=== PATIENT | female | born 1985 | race Caucasian/White ===

== ENCOUNTER 2018-06-13 17:47 | Emergency (ER) | payer SELFPAY ==
[~2018-06-13] VITALS: Ht 157.5 cm; Wt 55.3 kg
[2018-06-13 18:21] VITALS: Ht 157.5 cm; Wt 55.3 kg
[2018-06-13 19:53] VITALS: BP 137/79
== END 2018-06-13 19:53 | disposition home or self-care (01) ==
LOC: ED 17:47
DX: S46.912A Strain of unspecified muscle, fascia and tendon at shoulder and upper arm level, left arm, initial encounter (principal); S39.012A Strain of muscle, fascia and tendon of lower back, initial encounter; Z98.890 Other specified postprocedural states; Z88.6 Allergy status to analgesic agent; Z98.51 Tubal ligation status; V48.5XXA Car driver injured in noncollision transport accident in traffic accident, initial encounter; Y93.I9 Activity, other involving external motion; Y92.488 Other paved roadways as the place of occurrence of the external cause; Y99.8 Other external cause status